=== PATIENT | female | born 1955 | race Caucasian/White ===

== ENCOUNTER 2016-12-25 12:05 | Inpatient (IN) ==
--- NOTE | 2016-12-25 12:14 | History & Physical Report ---
Date of Encounter: 12/25/16 Time of Encounter: 12:14 24 Hour HP Update - Instructions Instructions: If the History and Physical is less than 30 days old and was completed prior to A.M. admission and or procedure and has NOT been updated on calendar day of procedure please complete this update prior to performing procedure. - Update Patient reports changes in Medical Condition: No Changes in examination, assessment, or condition: No Changes in Medication: No Preop tests/diagnostics Reviewed: Yes Surgery Remains Indicated: Yes Consent for Planned Operative Procedure(s) Verified: Yes - Pre-Operative Checklist Preoperative Checklist Indicated: No Prophylactic Antibiotic Ordered: Yes Is VTE Prophylaxis Indicated?: Yes
--- NOTE | 2016-12-25 12:33 | Anesthesia Evaluation PreOp ---
Date of Encounter: 12/25/16 Time of Encounter: 12:31 - Past History Planned Operation: Left Total Knee Arthroplasty Cardiac History: Denies any Significant Hx Pulmonary History: Denies Any Significant HX, Snore OPERATIONS RESEARCH ENGINEER History: Denies Any Significant HX Other Medical History: GERD Anesthesia History: No Prior Anesthetic Complications, Past Anesthesia Alcohol Use: none Drug use: none Medications and Allergies Meloxicam 10/20/15 [History] Neurontin 10/20/15 [History] Zantac 10/20/15 [History] Azithromycin [Zithromax] 250 mg PO DAILY #6 tablet 11/14/16 [Rx] Benzonatate [Tessalon] 200 mg PO TID PRN #30 capsule 11/14/16 [Rx] Allergies No Known Allergies Allergy (Verified 11/14/16 18:57) - Meds/Allergy Pre-op Review Medications Reviewed: Yes Allergies Reviewed: Yes Beta Blockers on Current Med List: No Anesthesia Results - Labs Laboratory Tests 12/17/16 12/17/16 12/17/16 11:05 11:05 11:05 WBC 7.0 Hgb 13.2 Hct 41.2 Plt Count 221 PT 11.2 INR 1.0 APTT 26.6 Sodium 138 Potassium 3.9 BUN 18 Creatinine 1.05 Anesthesia Exam O2 Sat Height 1.73 m Height 1.73 m Weight 104.78 kg Weight 104.78 kg O2 Sat by Pulse Oximetry 99 Vital Signs Temp Pulse Resp BP Pulse Ox 98.0 F 64 18 137/72 99 12/25/16 12:23 12/25/16 12:23 12/25/16 12:23 12/25/16 12:23 12/25/16 12:23 Height: 5'8'' Weight: 231 lbs NPO (# of Hours): 8 Pain Scale: 0 Pain Scale Used: Numeric (1 - 10) - HEENT Pupil (Motor): EOMI Mallampati: II Teeth: Normal Oral Opening: Greater than 3 - OPERATIONS RESEARCH ENGINEER LOC: Oriented OPERATIONS RESEARCH ENGINEER Motor: Normal RUE, Normal LUE, Normal RLE, Normal LLE, Normal Face OPERATIONS RESEARCH ENGINEER Sensory: Normal: RUE, LUE, RLE, LLE, Face - Cardiac Rhythm: Regular Murmur: None - Pulmonary Breath Sounds: bilateral Clear Respiratory Effort: Symmetrical Anesthesia Assess/Plan ASA Score: 2 Modified Umu Scale for Level of Consciousness: Cooperative, oriented, and tranquil Anesthetic Plan: General, Regional Monitoring Plan: Standard Monitors Recovery Plan: PACU
--- NOTE | 2016-12-25 12:36 | Discharge Summary ---
Date of Encounter: 12/30/16 Time of Encounter: 13:52 - Discharge Diagnosis (1) Arthritis of left knee Priority: Primary Status: Acute - Discharge Medications Home Medications: Aspirin/Calcium Carbonate/Mag [Aspirin Buffered 325 mg Tab] 325 mg PO BID #20 tablet 12/25/16 [Rx] Cholecalciferol (D-3) [Vitamin D] 2,000 unit PO DAILY 12/25/16 [History] Multivitamin [One Daily Multivitamin] 1 each PO DAILY 12/25/16 [History] Nabumetone [Relafen] 500 mg PO BID 12/25/16 [History] [place]-3/Dha/Epa/Fish Oil [Fish Oil 1,000 mg Softgel] 1 each PO DAILY 12/25/16 [ History] Omeprazole [PriLOSEC] 40 mg PO DAILY 12/25/16 [History] OxyCODONE Immed Rel [Roxicodone 5 MG] 5 mg PO Q4HR PRN #24 tablet 12/25/16 [Rx] Allergies/Adverse Reactions: Allergies No Known Allergies Allergy (Verified 12/25/16 13:05) Primary care physician: Renetta Meza CNP - Patient Status Disposition: Home, Self-Care Condition: Good Functional capacity at discharge: uses cane/walker Overall status at discharge: patient is progressing back to baseline - Discharge Instructions Follow Up With: Renetta Meza CNP [Primary Care Provider] - Maureen Rock PAC [Physician Hosiery Operator] - 01/01/17 11:30 am Additional Instructions: Discharge Instructions: Total Knee Replacement Please call [facility] ([phone]), your Primary Care Physician, or report to the Emergency Room if you have any of the following symptoms: Nausea, vomiting, fever greater that 101.5, swelling, chest pain, shortness of breath, increased pain/redness/drainage/odor for your incision site, numbness/ tingling, or any other concerning symptoms. ACTIVITY:Weight-bearing as tolerated. You may progress off support (crutches or walker) as tolerated. MEDICATIONS: Upon discharge resume your home medications. Take all the medications as prescribed. Take a stool softener if taking narcotic pain medications. Stool softeners are only effective if you drink enough fluids. Drink 6-8 glass of water or fluids a day, unless this is not allowed for another health problem. Despite using stool softeners, if you haven't had a bowel movement in 3 days, please switch to a gentle laxative. Gentle laxatives are sold over the counter. You should have a bowel movement within 24 hours, if not call the office. You will be discharged from the hospital with a prescription for pain medication. You are encouraged to decrease the use of narcotic pain medication as tolerated. Should you require a refill, please call the office. [facility] prescribes narcotic pain medication for only 4-6 weeks after surgery. If you require pain medication beyond this time period, you may be referred to your Primary Care Physician or to the Pain Clinic for further evaluation. Plan ahead for refills on pain medication as many narcotics either need to be picked up at the office or mailed. It is best to call 48-72 hours in advance of needing a prescription refill so you don't run out of medication. To help control the post-operative pain, you may take NSAIDs (Aleve,Advil, Motrin, Ibuprofen, Naprosyn) or Tylenol as prescribed on the bottle in addition to the pain medication. ANTICOAGULATION (blood thinners): Continue your Aspirin, Lovenox or Coumadin as prescribed to help prevent a blood clot in the leg or in the lungs. As long as your incision remains dry and you tolerate the NSAIDs (Aleve, Advil, Motrin, ibuprofen, naprosyn), it is OK to use the NSAIDS while you are taking your anticoagulation medication. Should your incision start to drain, stop the NSAID and contact our office. Common symptoms of blood clot in the legs include: localized pain, swelling, calf tenderness, redness or discoloration of the skin. Blood clot in the lung symptoms include: shortness of breath, rapid pulse, sweating, and chest pain that worsens with deep breathing, coughing up blood, lightheadedness, feelings of anxiety. If you experience any of these symptoms notify your physician immediately, go to the emergency room, or if having trouble breathing, call 911. WOUND CARE: Leave the dressing on for 7 to 10days. You may change the dressing if it becomes saturated greater than 50%. Do not get the dressing wet at anytime. Wash your hands with antibacterial soap, rinse and dry prior to any wound care. If you have mary the visiting nurse or rehab facility can remove the stapes 10-14 days after surgery and place steri-strips across the wound. Leave the steri-strips in place until they fall off on their won. You may let water from the shower run on top of the steri-strips. If you do not have a visiting nurse or rehab facility, you will need to return to the office at 10-14 days for the mary to be removed. If you have itching or redness around the dressing call the office. FOLLOW-UP: Please follow up with your surgeon in the orthopedic clinic in 4 weeks from the day of surgery. If you have mary that need to be removed, you will need to come back to the office in 10-14 days from the day of surgery. - Hospital Course Hospital course: Ms. Gillespie is a 61 year old female The patient had an uneventful postoperative course. They received antibiotics and physical therapy and were discharged in stable condition. There will follow -up in the office in 2 weeks. - Time Spent with Patient Total time spent providing and/or coordinating discharge services:
[2016-12-25] MEDS ORDERED: CeFAZolin Pre 2,000 MG/100 ML 2,000 MG/100 ML BAG IVPB ONE (12:45)
[2016-12-25] MEDS ORDERED: Ringers Solution, Lactated 1,000 ML IVC SCH ×2 (12:45→16:03)
[2016-12-25] MEDS ORDERED: ROPIVACAINE HCL/PF 0.5% 30 ML VIAL ONE (12:56)
[2016-12-25] MEDS ORDERED: *HR* FentaNYL (PF) 100 MCG/2 ML VIAL ONE ×2 (12:57→13:07)
[2016-12-25] MEDS ORDERED: *HR* Midazolam HCl 2 MG/2 ML VIAL ONE ×2 (12:57→13:07)
[2016-12-25] MEDS ORDERED: Ketorolac 30 MG/ML VIAL ONE (12:59)
[2016-12-25] MEDS ORDERED: Lidocaine -MPF 4% 5 ML AMPUL ONE (12:59)
[2016-12-25] MEDS ORDERED: *HR* Propofol 200 MG/20 ML VIAL IVP ONE ×2 (12:59→13:07)
[2016-12-25] MEDS ORDERED: Dexamethasone 4 MG/ML VIAL ONE ×2 (12:59→13:08)
[2016-12-25] MEDS ORDERED: *HR* Succinylcholine 200 MG/10 ML VIAL IVP ONE (12:59)
[2016-12-25] MEDS ORDERED: Ondansetron 4 MG/2 ML VIAL ONE ×2 (12:59→13:08)
[2016-12-25] MEDS ORDERED: Lidocaine -MPF 2% 2 ML VIAL ONE ×2 (12:59→13:08)
[2016-12-25] MEDS ORDERED: EPHEDrine 50 MG/ML VIAL ONE (14:13)
[2016-12-25] MEDS ORDERED: *HR* HYDROmorphone (PF) 1 MG/ML SYRINGE IVP PRN ×2 (14:39→16:03)
[2016-12-25] MEDS ORDERED: *HR* Promethazine 25 MG/ML VIAL IVP PRN (14:39)
--- NOTE | 2016-12-25 15:13 | Orthopedic Operative Note ---
Date of procedure: 12/25/16 Pre-op diagnosis: left knee arthritis Post-op diagnosis: same Procedure: Procedure: Left Total knee replacement Estimated blood loss: 500 cc Hardware: Arthrex Femur:6 Tibia:5 PS insert: 12 Patella:34 Exam Under anesthesia: Full flexion and extension, no instability Procedural Notes:Grade 4 arthritic changes medial compartment and patella Operative procedure: The patient was brought to the operating room and placed on the operating room table. After general anesthesia was administered the operative knee was examined. Findings were noted in the exam under anesthesia. The operative extremity was prepped and draped in sterile surgical fashion. The patient received IV antibiotics prior to skin incision. A standard midline incision was made centered over the patella. The incision was made through the skin and subcutaneous tissue. A medial parapatellar tendon approach was performed. Care was taken to preserve tissue along the medial aspect of the patella. And to protect the patella tendon. The deep MCL was released off the medial tibia. The infra patella fat pad was excised. Knee was brought into flexion. Grade 4 arthritic changes medial compartment and patella. The entry hole was made for the intramedullary femoral guide. The guide was seated in 6 degrees of valgus. Anterior cut was made followed by the distal cut. The ACL the PCL the medial and the lateral menisci were excised. The tibia was subluxed forward. The entry hole was made for the intramedullary tibial guide. Guide was seated to resect 2 mm off the more abnormal side. The knee was brought into flexion the distal femur was sized 6. The femoral guide was seated , the anterior cut was made followed by the posterior condylar cut, followed by the chamfer cuts. The finishing guide was seated the box cut was made and the lug holes were drilled. The tibia was sized 5, the tibial tray was seated and prepared with the large drill followed by the fin cutter. Trial reduction revealed full extension no varus valgus instability with the appropriate PS Soledad. The patella was everted and cut was made at the level of the insertion of the quadriceps and patella tendon. The patella was sized 34 the guide was seated and the lug holes are drilled. Trial reduction revealed excellent patella tracking. All trial components were removed all bony surfaces were irrigated. The tibia was cemented first followed by the femur. 12 PS Soledad was seated and the knee was brought into full extension. The patella was cemented and held in place with the patellar holding clamp. After the cement had hardened, the knee sat for 2 minutes with a Betadine saline solution. The knee was then irrigated out with 2 L of pulse irrigation. The extensor mechanism was closed with #2 FiberWire suture and #2 PDS suture. The subcutaneous tissue was then irrigated and closed deep with #1 PDS suture superficially with 0 PDS suture and skin was closed with skin mary. The patient was then placed in a sterile dressing and a postoperative brace extubated and transferred to recovery room in stable condition. Anesthesia: GETA Surgeon: Paco Cantu Condition: stable Disposition: PACU
[2016-12-25 15:46] LABS: Hematocrit 34.1 % (35.3-44.9); Hemoglobin 11.3 g/dL (11.5-15.4)
--- NOTE | 2016-12-25 15:58 | Anesthesia Evaluation Post Op ---
Date of Encounter: 12/25/16 Time of Encounter: 15:55 - Vital Signs Vital Signs: vss - Lungs Lungs: Clear Ascult./Percussion - Airway Airway: Non-obstructed - Cardiovascular Regular Rate - Mental Status Mental Status: Alert & Oriented, Answers Appropriately - Pain Pain Scale: 0 Pain Scale used: Numeric (1 - 10) - Nausea Vomiting Nausea Vomiting: Not Present - Hydration Hydration: Tolerates oral liquids - Discharge PostOp Status: Transfer Patient to floor
[2016-12-25] MEDS ORDERED: MOM Conc 10 ML UD.LIQ PO PRN (16:03)
[2016-12-25] MEDS ORDERED: Ondansetron 4 MG/2 ML VIAL IVP PRN (16:03)
[2016-12-25] MEDS ORDERED: *HR* OxyCODONE Immed Rel 5 MG TABLET PO PRN (16:03)
[2016-12-25] MEDS ORDERED: Temazepam 15 MG CAPSULE PO PRN (16:03)
[2016-12-25] MEDS ORDERED: ceFAZolin 2,000 MG in D5% in Water 100 ML IVPB SCH (16:03)
[2016-12-25] MEDS ORDERED: Sennosides 8.6 MG TABLET PO PRN (16:03)
[2016-12-25] MEDS ORDERED: Naloxone 0.4 MG/ML INJ IVP PRN (16:03)
[2016-12-25] MEDS: *HR* OxyCODONE Immed Rel 5 MG TABLET PO PRN (16:51)
[2016-12-25] MEDS ORDERED: *HR* Enoxaparin 30 MG/0.3 ML SYRINGE SQ SCH (18:00)
[2016-12-25] MEDS: *HR* Enoxaparin 30 MG/0.3 ML SYRINGE SQ SCH (18:39)
[2016-12-25] MEDS: ceFAZolin 2,000 MG in D5% in Water 100 ML IVPB SCH (23:10)
[2016-12-26] MEDS: *HR* OxyCODONE Immed Rel 5 MG TABLET PO PRN ×4 (04:38→21:26)
[2016-12-26 04:43] LABS: Hematocrit 30.9 % (35.3-44.9); Hemoglobin 10.4 g/dL (11.5-15.4)
[2016-12-26 05:13] LABS: BUN/Creatinine Ratio 17 (6-26); Blood Urea Nitrogen 14 mg/dL (7-20); Calcium 8.6 mg/dL (8.6-10.8); Carbon Dioxide 26 mEq/L (19-29); Chloride 103 mEq/L (98-109); Glucose 123 mg/dL (70-99); Osmolality,Calculated 286 (280-300); Potassium 4.4 mEq/L (3.5-4.5); Sodium 137 mEq/L (136-145); eGFR For African Americans > 60 (> 60); eGFR For Non-African Americans > 60 (> 60)
[2016-12-26] MEDS: ceFAZolin 2,000 MG in D5% in Water 100 ML IVPB SCH (06:59)
[2016-12-26] MEDS: *HR* Enoxaparin 30 MG/0.3 ML SYRINGE SQ SCH ×2 (07:02→17:01)
[2016-12-26] MEDS: (Omega-3/Dha/Epa/Fish Oil [Fish Oil 1,000 Mg Softgel]) PO SCH (09:34)
[2016-12-26] MEDS: Multivit/Ca/Min/Fe/FA 1 TAB TABLET PO SCH (09:34)
[2016-12-26] MEDS: Cholecalciferol (D-3) 1,000 UNIT TABLET PO SCH (09:36)
--- NOTE | 2016-12-26 10:24 | Orthopedics Progress Note ---
Date of Encounter: 12/26/16 Time of Encounter: 10:23 Subjective Interval history: S: No complaints. Pain well controlled. O: Afeb, VSS Left knee dressing is clean, dry, intact. NV intact distally. Calf soft. A: Post op day 1 after left total knee P: Resume post op care Objective Vital signs: Vital Signs Temp Pulse Resp BP Pulse Ox 12/26/16 05:24 98.2 F 79 16 101/58 96 12/26/16 00:48 98.1 F 66 16 109/55 98 12/25/16 20:10 98.1 F 79 15 127/57 97 12/25/16 20:00 98.0 F 72 16 114/53 97 12/25/16 18:45 97.7 F 66 15 104/51 99 12/25/16 17:05 73 16 116/56 95 12/25/16 16:35 97.2 F L 67 16 103/52 99 12/25/16 16:06 97.6 F 62 15 94/50 99 12/25/16 15:50 97.8 F 57 16 92/54 100 12/25/16 15:40 97.8 F 66 20 104/62 99 12/25/16 15:30 64 20 106/55 100 12/25/16 15:20 66 20 107/64 97 12/25/16 15:10 97.8 F 79 22 118/62 98 12/25/16 13:52 77 120/64 98 12/25/16 13:40 64 144/72 98 12/25/16 12:23 98.0 F 64 18 137/72 99 Intake and Output 12/25/16 12/26/16 12/26/16 23:59 07:59 15:59 Intake Total 100 / 100 Output Total 200 / 200 400 / 400 Balance -100 / -100 -400 / -400 Intake: IV Fluids 100 / 100 Ancef 2,000 MG In 100 / 100 Dextrose 5% 100 ML @ 200 mls/hr IVPB Q[facility]H [facility] Rx#: [id number] Output: Urine 200 / 200 400 / 400 - Labs CBC & BMP: 12/26/16 04:08 12/26/16 04:08 Labs: Abnormal lab results Hgb 10.4 g/dL (11.5-15.4) L 12/26/16 04:08 Hct 30.9 % (35.3-44.9) L 12/26/16 04:08 Glucose 123 mg/dL (70-99) H 12/26/16 04:08 - VTE Documentation of Mechanical Device: Venous foot pump, device Consult Discharge Plan - Plan Referrals: Renetta Meza, WELL FLOW OPERATOR [Primary Care Provider] -
[2016-12-27 03:53] LABS: Hematocrit 27.1 % (35.3-44.9); Hemoglobin 8.9 g/dL (11.5-15.4)
[2016-12-27 04:08] LABS: BUN/Creatinine Ratio 15 (6-26); Blood Urea Nitrogen 12 mg/dL (7-20); Carbon Dioxide 30 mEq/L (19-29); Chloride 102 mEq/L (98-109); Glucose 128 mg/dL (70-99); Osmolality,Calculated 283 (280-300); Potassium 3.8 mEq/L (3.5-4.5); Sodium 136 mEq/L (136-145); eGFR For African Americans > 60 (> 60); eGFR For Non-African Americans > 60 (> 60)
[2016-12-27] MEDS: *HR* OxyCODONE Immed Rel 5 MG TABLET PO PRN ×3 (04:55→13:16)
[2016-12-27] MEDS: *HR* Enoxaparin 30 MG/0.3 ML SYRINGE SQ SCH (05:58)
[2016-12-27 06:34] VITALS: BP 119/68
[2016-12-27] MEDS: (Omega-3/Dha/Epa/Fish Oil [Fish Oil 1,000 Mg Softgel]) PO SCH (09:23)
[2016-12-27] MEDS: Cholecalciferol (D-3) 1,000 UNIT TABLET PO SCH (09:23)
[2016-12-27] MEDS: Multivit/Ca/Min/Fe/FA 1 TAB TABLET PO SCH (09:23)
--- NOTE | 2016-12-27 10:51 | Orthopedics Progress Note ---
Date of Encounter: 12/27/16 Time of Encounter: 10:51 Subjective Interval history: S: No complaints. Pain well controlled. O: Afeb, VSS Left knee dressing is clean, dry, intact. NV intact distally. Calf soft. A: Post op day 2 after left total knee P: Resume post op long-term today Objective Vital signs: Vital Signs Temp Pulse Resp BP Pulse Ox 12/27/16 06:32 98.8 F 84 18 119/68 97 12/27/16 01:00 99.1 F 106 14 124/62 99 12/26/16 21:08 99.3 F 91 15 123/69 100 12/26/16 15:40 98.6 F 88 18 114/78 97 12/26/16 11:01 98.1 F 86 18 145/74 99 Intake and Output 12/26/16 12/27/16 12/27/16 23:59 07:59 15:59 Intake Total 320 / 320 275 / 275 Balance 320 / 320 275 / 275 Intake: Oral 320 / 320 275 / 275 Other: Meal Dinner Percent of Meal Consumed 100% # Voids 1 1 - Labs CBC & BMP: 12/27/16 03:42 12/27/16 03:42 Labs: Abnormal lab results Hgb 8.9 g/dL (11.5-15.4) L D 12/27/16 03:42 Hct 27.1 % (35.3-44.9) L 12/27/16 03:42 Carbon Dioxide 30 mEq/L (19-29) H 12/27/16 03:42 Glucose 128 mg/dL (70-99) H 12/27/16 03:42 Calcium 8.0 mg/dL (8.6-10.8) L 12/27/16 03:42 - VTE Documentation of Mechanical Device: Venous foot pump, device Consult Discharge Plan - Plan Referrals: Renetta Meza CNP [Primary Care Provider] -
== END 2016-12-27 13:34 | disposition home or self-care (01) | DRG 470 ==
LOC: SAMDAY 12:05 → 3NENU 15:51
PROVIDERS: ADMIT Orthopaedic Surgery; ATTEND Orthopaedic Surgery

== ENCOUNTER 2017-03-01 11:08 | Inpatient (IN) ==
--- NOTE | 2017-02-28 21:52 | Discharge Summary ---
<Kajal,Amanda Jerrod - Last Filed: 02/28/17 21:50> Date of Encounter: 02/28/17 - Discharge Diagnosis (1) Arthritis of right knee Priority: Primary Status: Chronic (2) GERD (gastroesophageal reflux disease) Priority: Secondary Status: Chronic - Discharge Medications Home Medications: Cholecalciferol (D-3) [Vitamin D] 1,000 unit PO DAILY 03/01/17 [History] Multivit with Calcium,Iron,Min [One Daily Women's] 1 tab PO DAILY 03/01/17 [ History] Nabumetone [Relafen] 500 mg PO BID 03/01/17 [History] [place]-3/Dha/Epa/Fish Oil [Fish Oil 1,000 mg Softgel] 1 cap PO DAILY 03/01/17 [ History] Omeprazole [PriLOSEC] 40 mg PO DAILY 03/01/17 [History] Allergies/Adverse Reactions: Allergies No Known Allergies Allergy (Verified 12/25/16 13:05) Primary care physician: Ermelinda Everett CNP - Patient Status Disposition: Home, Self-Care Condition: Good - Discharge Instructions Follow Up With: Ermelinda Everett CNP [Primary Care Provider] - - Hospital Course Hospital course: Ms. Gillespie is a 61 year old female - Time Spent with Patient Total time spent providing and/or coordinating discharge services: - VTE Documentation of Mechanical Device: Venous foot pump, device <Paco Cantu - Last Filed: 03/02/17 07:00> Date of Encounter: 03/02/17 Time of Encounter: 06:59 - Discharge Diagnosis (1) History of total right knee replacement Priority: Primary Status: Acute (2) Arthritis of right knee Priority: Primary Status: Acute (3) GERD (gastroesophageal reflux disease) Priority: Secondary Status: Chronic Qualifiers: Esophagitis presence: esophagitis presence not specified Qualified Code(s) : K21.9 - Gastro-esophageal reflux disease without esophagitis Primary care physician: Ermelinda Everett CNP - Patient Status Functional capacity at discharge: uses cane/walker Overall status at discharge: patient is progressing back to baseline - Hospital Course Hospital course: Ms. Gillespie is a 61 year old female Status post total knee replacement The patient had an uneventful postoperative course. They received antibiotics and physical therapy and were discharged in stable condition. There will follow -up in the office in 2 weeks. Aspirin for DVT prophylaxis - Time Spent with Patient Total time spent providing and/or coordinating discharge services:
--- NOTE | 2017-03-01 11:35 | History & Physical Report ---
Date of Encounter: 03/01/17 Time of Encounter: 11:34 24 Hour HP Update - Instructions Instructions: If the History and Physical is less than 30 days old and was completed prior to A.M. admission and or procedure and has NOT been updated on calendar day of procedure please complete this update prior to performing procedure. - Update Patient reports changes in Medical Condition: No Changes in examination, assessment, or condition: No Changes in Medication: No Preop tests/diagnostics Reviewed: Yes Surgery Remains Indicated: Yes Consent for Planned Operative Procedure(s) Verified: Yes - Pre-Operative Checklist Preoperative Checklist Indicated: No Prophylactic Antibiotic Ordered: Yes Is VTE Prophylaxis Indicated?: Yes
[2017-03-01] MEDS ORDERED: Famotidine 20 MG/2 ML VIAL IVP ONE (11:42)
[2017-03-01] MEDS ORDERED: Gabapentin 300 MG CAPSULE PO ONE (11:42)
[2017-03-01] MEDS ORDERED: *HR* Midazolam HCl 2 MG/2 ML VIAL ONE (11:44)
[2017-03-01] MEDS ORDERED: *HR* FentaNYL (PF) 100 MCG/2 ML VIAL ONE (11:44)
[2017-03-01] MEDS ORDERED: Lidocaine -MPF 2% 2 ML VIAL ONE ×2 (11:44→11:47)
[2017-03-01] MEDS ORDERED: Lidocaine -MPF 1% 2 ML VIAL ID ONE (11:45)
[2017-03-01] MEDS ORDERED: CeFAZolin Pre 2,000 MG/100 ML 2,000 MG/100 ML BAG IVPB ONE (11:45)
[2017-03-01] MEDS ORDERED: *HR* Propofol 200 MG/20 ML VIAL IVP ONE (11:47)
[2017-03-01] MEDS ORDERED: Dexamethasone 4 MG/ML VIAL ONE (11:47)
[2017-03-01] MEDS ORDERED: Ondansetron 4 MG/2 ML VIAL ONE (11:47)
[2017-03-01] MEDS ORDERED: *HR* HYDROmorphone (PF) 1 MG/ML SYRINGE IVP PRN ×2 (11:51→15:27)
--- NOTE | 2017-03-01 11:53 | Anesthesia Evaluation PreOp ---
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 History: Denies Any Significant HX Other Medical History: GERD, Other (IBS) Anesthesia History: No Prior Anesthetic Complications : No Alcohol Use: none Drug use: none Medications and Allergies Aspirin/Calcium Carbonate/Mag [Aspirin Buffered 325 mg Tab] 325 mg PO BID #20 tablet 12/25/16 [Rx] Cholecalciferol (D-3) [Vitamin D] 2,000 unit PO DAILY 12/25/16 [History] Multivitamin [One Daily Multivitamin] 1 each PO DAILY 12/25/16 [History] Nabumetone [Relafen] 500 mg PO BID 12/25/16 [History] [place]-3/Dha/Epa/Fish Oil [Fish Oil 1,000 mg Softgel] 1 each PO DAILY 12/25/16 [ History] Omeprazole [PriLOSEC] 40 mg PO DAILY 12/25/16 [History] OxyCODONE Immed Rel [Roxicodone 5 MG] 5 mg PO Q4HR PRN #24 tablet 12/25/16 [Rx] Aspirin Enteric Coated [Aspirin EC] 325 mg PO QAM #21 tablet. 02/28/17 [Rx] OxyCODONE Immed Rel [Roxicodone 5 MG] 5 - 10 mg PO Q6HR PRN #40 tablet 02/28/17 [Rx] Allergies No Known Allergies Allergy (Verified 12/25/16 13:05) - Meds/Allergy Pre-op Review Medications Reviewed: Yes Allergies Reviewed: Yes Beta Blockers on Current Med List: No Anesthesia Results - Labs Laboratory Tests 02/20/17 02/20/17 12:58 12:58 Hgb 12.5 Hct 39.7 Plt Count 214 Sodium 140 Potassium 4.5 BUN 14 Creatinine 0.91 Anesthesia Exam O2 Sat Height 1.73 m Height 1.73 m Weight 93.44 kg Weight 93.44 kg O2 Sat by Pulse Oximetry 98 Vital Signs Temp Pulse Resp BP Pulse Ox 97.8 F 70 18 140/73 98 03/01/17 11:29 03/01/17 11:29 03/01/17 11:29 03/01/17 11:29 03/01/17 11:29 Height: 5'8 Weight: 206 lbs NPO (# of Hours): MN Pain Scale: 0 - HEENT Pupil (Motor): Pupils equal, EOMI Mallampati: II Teeth: Normal Oral Opening: Greater than 3 - SHOTGUN SHELL LOADING MACHINE OPERATOR LOC: Oriented SHOTGUN SHELL LOADING MACHINE OPERATOR Motor: Normal RUE, Normal LUE, Normal RLE, Normal LLE, Normal Face SHOTGUN SHELL LOADING MACHINE OPERATOR Sensory: Normal: RUE, LUE, RLE, LLE, Face - Cardiac Rhythm: Regular Murmur: None JVD: No Carotid Bruit: No - Pulmonary Respiratory Effort: Symmetrical Anesthesia Assess/Plan ASA Score: 2 Modified [place] Scale for Level of Consciousness: Cooperative, oriented, and tranquil Anesthetic Plan: General, Regional Monitoring Plan: Standard Monitors Recovery Plan: PACU (Discussed GA and RA, agrees to proceed)
[2017-03-01] MEDS: Ringers Solution, Lactated 1,000 ML IVC SCH ×2 (12:16→15:05)
[2017-03-01] MEDS ORDERED: Tetracaine/PF 20 MG/2 ML AMPUL ONE (12:34)
[2017-03-01] MEDS ORDERED: ROPIVACAINE HCL/PF 0.5% 30 ML VIAL ONE (12:34)
[2017-03-01] MEDS ORDERED: Bupivacaine/Clonidine Syringe 1 EACH SYRINGE ONE (12:35)
--- NOTE | 2017-03-01 12:54 | Anesthesia Procedures ---
Date of Encounter: 03/01/17 Time of Encounter: 12:52 Procedures: Anesthesia - Nerve Block Procedure Date: 03/01/17 Time: 12:53 Allergies/Adv Reactions: Allergies No Known Allergies Allergy (Verified 12/25/16 13:05) Pre-op Diagnosis: right knee oa Surgical Procedure: right total knee Checklist: Correct Patient Identifier, Correct procedure, History checked Correct side: Right Monitor Applied: EKG, BP, Pulse Oximetry Supplemental Oxygen via Nasal Cannula (L/min): 2 Sedation: Versed (mg): 2 Sedation: Fentanyl (mcg): 100 Block Type: Femoral ( 0.5% ropi), Other (0.25% bup) Catheter placed: No Sterile Technique: Yes Ultrasound used: Yes Anatomy identified: Yes Visual spread of Local: Yes Neuro Stimulation: Yes Nerve Stimulator Range: 0.2 - 0.4 mA Blood on Needle Aspiration: No Smooth Injection of Local: Yes Pain with Injection of Local: No Prep: Chlorhexadine Needle: 22 x 50 mm Stimuplex (fem), 21 x 100 mm Stimuplex (sciatic) Local: 0.25% Bupivicaine w/Clonidine 20 mcg/cc, Ropivacaine Volume (cc): 50 Number of Attempts: 1 Complications: None/effective block
[2017-03-01] MEDS ORDERED: *HR* HYDROmorphone 2 MG/ML SYRINGE ONE (13:33)
[2017-03-01] MEDS ORDERED: Ondansetron 4 MG/2 ML VIAL IVP ONE (13:46)
--- NOTE | 2017-03-01 13:57 | Orthopedic Operative Note ---
Date of procedure: 03/01/17 Pre-op diagnosis: Right knee arthritis Post-op diagnosis: same Procedure: Procedure: Right Total knee replacement Estimated blood loss: 400 cc Hardware: Metal and polyethylene replacement. Arthrex Femur: 6 Tibia: 5 PS insert: 14 Patella: 40 Exam Under anesthesia: Loss full extension 10 degrees full flexion and no instability Procedural Notes: Grade 4 arthritic changes medial compartment grade 3 arthritic changes patellofemoral joint Operative procedure: The patient was brought to the operating room and placed on the operating room table. After general anesthesia was administered the operative knee was examined. Findings were noted in the exam under anesthesia. The operative extremity was prepped and draped in sterile surgical fashion. The patient received IV antibiotics prior to skin incision. A standard midline incision was made centered over the patella. The incision was made through the skin and subcutaneous tissue. A medial parapatellar tendon approach was performed. Care was taken to preserve tissue along the medial aspect of the patella. And to protect the patella tendon. The deep MCL was released off the medial tibia. The infra patella fat pad was excised. Knee was brought into flexion. Patient noted to have grade 43 changes medial compartment grade 3 arthritic changes patellofemoral joint. The entry hole was made for the intramedullary femoral guide. The guide was seated in 6 degrees of valgus. Anterior cut was made followed by the distal cut. The ACL the PCL the medial and the lateral menisci were excised. The tibia was subluxed forward. The entry hole was made for the intramedullary tibial guide. Guide was seated to resect 2 mm off the more abnormal side. The knee was brought into flexion the distal femur was sized to a 6. The femoral guide was seated, the anterior cut was made followed by the posterior condylar cut, followed by the chamfer cuts. The finishing guide was seated the box cut was made and the lug holes were drilled. The tibia was sized to a 5, the tibial tray was seated and prepared with the large drill followed by the fin cutter. Trial reduction revealed full extension no varus valgus instability with the appropriate 14 PS Soledad. The patella was everted and cut was made at the level of the insertion of the quadriceps and patella tendon. The patella was sized to 40 the guide was seated and the lug holes are drilled. Trial reduction revealed excellent patella tracking. All trial components were removed all bony surfaces were irrigated. The tibia was cemented first followed by the femur. the 14 PS Soledad was seated and the knee was brought into full extension. The patella was cemented and held in place with the patellar holding clamp. After the cement had hardened, the knee sat for 2 minutes with a Betadine saline solution. The knee was then irrigated out with 2 L of pulse irrigation. The LAUREN Rdz closed the knee. The extensor mechanism was closed with #2 FiberWire suture and #2 PDS suture. The subcutaneous tissue was then irrigated and closed deep with #1 PDS suture superficially with 0 PDS suture and skin was closed with skin mary. The patient was then placed in a sterile dressing and a postoperative brace extubated and transferred to recovery room in stable condition. Anesthesia: GETA Surgeon: Paco Cantu Condition: stable Disposition: PACU
[2017-03-01] MEDS ORDERED: Ketorolac 30 MG/ML VIAL ONE (14:34)
[2017-03-01 14:55] LABS: Hemoglobin 11.3 g/dL (11.5-15.4)
--- NOTE | 2017-03-01 15:15 | Anesthesia Evaluation Post Op ---
Date of Encounter: 03/01/17 Time of Encounter: 15:15 - Vital Signs Vital Signs: Vital Signs/O2 Sat/Glucose, Most Current Temp Pulse Resp BP Pulse Ox 03/01/17 15:02 97.7 F 65 16 126/63 97 03/01/17 14:52 71 16 111/64 97 03/01/17 14:42 64 14 123/74 95 03/01/17 14:32 97.5 F L 64 12 154/86 100 03/01/17 12:34 71 12 155/75 100 03/01/17 11:50 97.8 F 70 18 140/73 98 03/01/17 11:29 97.8 F 70 18 140/73 98 - Lungs Lungs: Clear Ascult./Percussion - Airway Airway: Non-obstructed - Cardiovascular Regular Rate - Mental Status Mental Status: Alert & Oriented, Answers Appropriately - Pain Pain Scale: 0 - Nausea Vomiting Nausea Vomiting: Not Present - Hydration Hydration: Ice chips - Discharge PostOp Status: Transfer Patient to floor
[2017-03-01] MEDS ORDERED: Ondansetron 4 MG/2 ML VIAL IVP PRN (15:27)
[2017-03-01] MEDS ORDERED: Sennosides 8.6 MG TABLET PO PRN (15:27)
[2017-03-01] MEDS ORDERED: Temazepam 15 MG CAPSULE PO PRN (15:27)
[2017-03-01] MEDS ORDERED: MOM Conc 10 ML UD.LIQ PO PRN (15:27)
[2017-03-01] MEDS ORDERED: Ringers Solution, Lactated 1,000 ML IVC SCH (15:27)
[2017-03-01] MEDS ORDERED: Naloxone 0.4 MG/ML INJ IVP PRN (15:27)
[2017-03-01] MEDS: *HR* OxyCODONE Immed Rel 5 MG TABLET PO PRN ×2 (15:46→21:59)
[2017-03-01] MEDS ORDERED: ceFAZolin 2,000 MG in D5% in Water 100 ML IVPB SCH (16:00)
[2017-03-01] MEDS: *HR* Enoxaparin 30 MG/0.3 ML SYRINGE SQ SCH (17:03)
[2017-03-01] MEDS ORDERED: *HR* Enoxaparin 30 MG/0.3 ML SYRINGE SQ SCH (18:00)
[2017-03-01] MEDS: ceFAZolin 2,000 MG in D5% in Water 100 ML IVPB SCH (20:42)
[2017-03-02] MEDS: *HR* Enoxaparin 30 MG/0.3 ML SYRINGE SQ SCH (05:16)
[2017-03-02] MEDS: ceFAZolin 2,000 MG in D5% in Water 100 ML IVPB SCH (05:16)
--- NOTE | 2017-03-02 07:01 | Orthopedics Progress Note ---
Date of Encounter: 03/02/17 Time of Encounter: 07:00 - Assessment and Plan (1) History of total right knee replacement Current Visit: Yes Status: Acute (2) Arthritis of right knee Current Visit: Yes Status: Acute (3) GERD (gastroesophageal reflux disease) Current Visit: Yes Status: Chronic Qualifiers: Esophagitis presence: esophagitis presence not specified Qualified Code(s) : K21.9 - Gastro-esophageal reflux disease without esophagitis Subjective Interval history: Patient was seen this morning doing well without complaints. Afebrile vital signs stable. Operative extremity: Neurovascularly intact Dressing clean dry and intact Calves nontender Assessment and plan: Continue with postoperative care Hematocrit 36 discharged today Objective Vital signs: Vital Signs Temp Pulse Resp BP Pulse Ox 03/02/17 06:57 98.0 F 65 16 108/55 98 03/02/17 04:50 98 F 74 17 99/60 100 03/02/17 00:42 97.8 F 59 16 107/65 99 03/01/17 20:30 98.0 F 56 16 110/59 99 03/01/17 18:08 96.5 F L 67 16 107/52 100 03/01/17 17:27 124/72 03/01/17 17:09 96.7 F L 51 16 105/45 98 03/01/17 16:08 97.0 F L 61 16 110/68 98 03/01/17 15:37 96.7 F L 66 16 119/58 98 03/01/17 15:32 98 03/01/17 15:12 97.7 F 69 16 122/84 95 03/01/17 15:02 97.7 F 65 16 126/63 97 03/01/17 14:52 71 16 111/64 97 03/01/17 14:42 64 14 123/74 95 03/01/17 14:32 97.5 F L 64 12 154/86 100 03/01/17 12:34 71 12 155/75 100 03/01/17 11:50 97.8 F 70 18 140/73 98 03/01/17 11:29 97.8 F 70 18 140/73 98 Intake and Output 03/01/17 03/01/17 03/02/17 15:59 23:59 07:59 Intake Total 1100 / 1100 100 / 100 100 / 100 Output Total 400 / 400 1500 / 1500 Balance 700 / 700 100 / 100 -1400 / -1400 Intake: IV Fluids 1100 / 1100 100 / 100 100 / 100 Lactated Ringers 1,000 ML 1000 / 1000 @ 25 mls/hr IVC [facility] Rx#:[id number] Ancef Premix 2,000 MG/100 100 / 100 ML 2,000 mg In 100 ml @ 200 mls/hr IVPB PREOP ONE Rx#:[id number] Ancef 2,000 MG In 100 / 100 100 / 100 Dextrose 5% 100 ML @ 200 mls/hr IVPB Q8H [facility] Rx#: [id number] Output: Urine 1500 / 1500 Estimated Blood Loss 400 / 400 Other: # Voids 1 Weight 93.44 kg 98.8 kg Patient Weight 03/02/17 23:59 Weight 98.8 kg - Labs CBC & BMP: 03/01/17 14:45 Labs: Abnormal lab results Hgb 11.3 g/dL (11.5-15.4) L 03/01/17 14:45 - VTE Documentation of Mechanical Device: Venous foot pump, device Consult Discharge Plan - Plan Referrals: Ermelinda Everett, COSMETIC COUNSELOR [Primary Care Provider] -
[2017-03-02 07:33] LABS: Hematocrit 29.4 % (35.3-44.9)
[2017-03-02 07:44] LABS: Hemoglobin 9.3 g/dL (11.5-15.4)
[2017-03-02 08:00] LABS: BUN/Creatinine Ratio 15 (6-26); Blood Urea Nitrogen 13 mg/dL (7-20); Calcium 8.8 mg/dL (8.6-10.8); Carbon Dioxide 28 mEq/L (19-29); Chloride 103 mEq/L (98-109); Glucose 98 mg/dL (70-99); Osmolality,Calculated 284 (280-300); Potassium 4.6 mEq/L (3.5-4.5); Sodium 137 mEq/L (136-145); eGFR For African Americans > 60 (> 60); eGFR For Non-African Americans > 60 (> 60)
--- NOTE | 2017-03-02 08:58 | Physician Discharge Referral ---
<Susy Johnson C - Last Filed: 03/02/17 08:56> Home Health/Hosp Referral Info Attending Provider: Dr. Paco Cantu - Diagnosis (1) Status post total right knee replacement Priority: Primary Status: Acute (2) Arthritis of left knee Priority: Secondary Status: Chronic (3) Arthritis of right knee Priority: Secondary Status: Chronic (4) GERD (gastroesophageal reflux disease) Priority: Secondary Status: Chronic - Respiratory Orders Smoking Cessation: Smoking cessation has been advised. For more information, call the [place] Tobacco Quit Line at 0-039-DTGQ-NOW. - Diet/Nutrition Diet/Nutrition Orders: Regular - Activity Activity Orders: Ambulate - Services Needed Following services are medically necessary services: Physical Therapy, Occupational Therapy - Transfer Medications Home Medications: Cholecalciferol (D-3) [Vitamin D] 1,000 unit PO DAILY 03/01/17 [History] Multivit with Calcium,Iron,Min [One Daily Women's] 1 tab PO DAILY 03/01/17 [ History] Nabumetone [Relafen] 500 mg PO BID 03/01/17 [History] [place]-3/Dha/Epa/Fish Oil [Fish Oil 1,000 mg Softgel] 1 cap PO DAILY 03/01/17 [ History] Omeprazole [PriLOSEC] 40 mg PO DAILY 03/01/17 [History] Allergies/Adverse Reactions: Allergies No Known Allergies Allergy (Verified 12/25/16 13:05) Certification: Further, I certify that my clinical findings support that this patient is homebound (i.e. absences from home require considerable and taxing effort and are for medical reasons or pentec[employer]ism services or infrequently or short duration when for other reasons) because: Homebound Reason: Post-surgery restriction and or conditions limit ability to leave home Attestation: My signature below is to certify that this patient is under my care and that I, or nurse practitioner, or a physician print shop assistant working with me, has a face-to- face encounter with this patient. <Susy Rdz E - Last Filed: 03/02/17 16:22> - Diagnosis (1) Status post total right knee replacement Priority: Primary Status: Acute (2) Arthritis of right knee Priority: Secondary Status: Chronic (3) GERD (gastroesophageal reflux disease) Priority: Secondary Status: Chronic - Respiratory Orders Smoking Cessation: Smoking cessation has been advised. For more information, call the [place] Tobacco Quit Line at 7-267-HWIC-NOW. - Dressing/Wound Care Site: right knee Type of Dressing/Treatments w/Frequency: Opsite placed. Keep dressing intact until first follow up appointment. If > 50% saturated,notify offfice, remove dressing and place appropriate dressing back in place. Dressing is water resistant, not water-proof. OK to shower, but do not get dressing wet. - Activity Activity Orders: Walker Other Treatments: Total Knee replacement Precautions x 6 weeks Apply cold therapy wrap 3-6x/day for 20 minutes at a time. Encourage ambulation throughout the day and incentive spirometer 10x/hour. Elevate affected extremity above heart as tolerated. Brace: Wear knee immobilizer at night x 2 weeks. Certification: Further, I certify that my clinical findings support that this patient is homebound (i.e. absences from home require considerable and taxing effort and are for medical reasons or pentecostalism services or infrequently or short duration when for other reasons) because:
[2017-03-02] MEDS ORDERED: Cholecalciferol (D-3) 1,000 UNIT TABLET PO SCH (09:00)
[2017-03-02] MEDS ORDERED: Multivit/Ca/Min/Fe/FA 1 TAB TABLET PO SCH (09:00)
[2017-03-02] MEDS ORDERED: (Omega-3/Dha/Epa/Fish Oil [Fish Oil 1,000 Mg Softgel] PO SCH (09:00)
[2017-03-02] MEDS: *HR* OxyCODONE Immed Rel 5 MG TABLET PO PRN ×2 (09:04→13:04)
[2017-03-02 11:42] VITALS: BP 119/55
== END 2017-03-02 13:24 | disposition home or self-care (01) | DRG 470 ==
LOC: SAMDAY 11:08 → 3NENU 15:26
PROVIDERS: ADMIT Orthopaedic Surgery; ATTEND Orthopaedic Surgery